=== PATIENT | female | born 1995 | race Caucasian/White ===

== ENCOUNTER 2021-10-05 12:38 | Inpatient (IN) | payer SELFPAY ==
[2021-10-05] MEDS ORDERED: Ondansetron PF 4 MG/2 ML Vial ONE (12:58)
[2021-10-05] MEDS ORDERED: Ketorolac Tromethamine 30 MG/ML VIAL ONE (13:06)
[2021-10-05 14:11] LABS: Bilirubin Negative (Negative); Blood, Urine Trace (Negative); Clarity Clear (Clear); Glucose, Urine (Dipstick) Greater than 1000 mg/dL (Negative); Ketone, Urine Greater than 150 mg/dL (Negative); Leukocyte Negative Leu/uL (Negative); Mucous/LPF Rare LPF (<2+); Nitrite Negative (Negative); Protein, Urine (Dipstick) 50 mg/dL (Neg-Trace); RBC/HPF 0-3 HPF (0-3); Specific Gravity, Urine 1.024 (1.002-1.036); Squamous Epithelial 0-3 HPF (0-3); Urobilinogen Normal mg/dL (Less than 2); WBC/HPF 0-3 HPF (0-3); pH, Urine 5.5 (5.0-9.0)
[2021-10-05 14:19] LABS: Bacteria/HPF Rare-Few HPF (None Seen)
[2021-10-05] MEDS ORDERED: diphenhydrAMINE 50 MG/ML VIAL ONE (14:20)
[2021-10-05] MEDS ORDERED: Metoclopramide HCl 10 MG/2 ML VIAL ONE (14:20)
[2021-10-05 14:40] LABS: Mean Corpuscular HGB CONC 34.8 g/dL (32.0-36.0); Mean Corpuscular Hemoglobin 24.6 pg (27.0-31.0); Mean Corpuscular Volume 70.6 fL (78.0-98.0); Mean Platelet Volume 8.3 fL (7.4-10.4); Platelet Count 713 thou/uL (130-400); RBC Distribution Width 20.6 % (11.5-14.5); White Blood Cell (WBC) Count 22.9 thou/uL (4.8-10.8)
[2021-10-05 14:42] LABS: BHCG - Serum Negative (NEGATIVE); Pregs Control Background? CLEAR/WHITE (CLR/WHITE); Pregs Control Bar Appear? YES (CONTROL BAR)
[2021-10-05] MEDS ORDERED: INSULIN REGULAR IN 0.9 % NACL 100 UNIT/100 ML BAG ONE (14:47)
[2021-10-05 14:55] LABS: Anisocytosis SLIGHT = 6-15 cells (100X) (0-5/hpf); Band 15 % (5-11); Lymphocytes 18 % (21-51); MDiff Complete? YES; Microcytosis SLIGHT = 6-15 cells (100X) (0-5/hpf); Monocytes 4 % (0-10); Neutrophil 63 % (42-75); Platelet Morphology Comment Appears Increased; Polychromasia SLIGHT = 2-3 cells (100X) (0-2/hpf)
[2021-10-05] MEDS ORDERED: Morphine 4 MG/ML VIAL ONE (15:02)
[2021-10-05 15:24] LABS: Actual Bicarbonate (HCO3a) 2.1 mEq/L (22-28); Analyzer IN Cardio ER; Base Excess (BEa) -29.1 mEq/L (-2.0 to +3.0); Calcium, Ionized (arterial) 1.24 mmol/L (1.12-1.30); Carboxyhemoglobin (COHb) 0.2 gm% (0.0-3.0); Hemoglobin (Hb) 10.4 g/dL (12.0-16.0); Potassium - ABG Lab 4.27 mmol/L (3.70-5.30)
[2021-10-05 15:32] LABS: CO2 Tension 10.8 mmHg (35.0-45.0); Puncture Site RRA
[2021-10-05 16:10] LABS: Carbon Dioxide Less than 8 mmol/L (22-29); Chloride 109 mmol/L (98-107); Potassium 5.3 mmol/L (3.5-5.1); Sodium 134 mmol/L (136-145)
[2021-10-05 16:11] LABS: Albumin 4.1 g/dL (3.5-5.0); Alkaline Phosphatase 151 U/L (40-110); BUN (Urea Nitrogen) 13 mg/dL (7.0-18.7); Bilirubin, Total Less than 0.2 mg/dL (0.2-1.2); Calc. Creatinine Clearance 0 mL/min (70-130); Calcium 8.7 mg/dL (7.8-10.44); Glucose 470 mg/dL (70-105); Protein, Total 10.1 g/dL (6.0-8.3)
[2021-10-05 16:12] LABS: ALT (SGPT) 17 U/L (8-55); AST (SGOT) 74 U/L (5-34); Lipase 41 U/L (8-78); Magnesium 2.4 mg/dL (1.6-2.6)
[2021-10-05] MEDS ORDERED: NS 0.9% w/ 20 MEQ KCL 1,000 ML ONE (16:13)
[2021-10-05] MEDS ORDERED: Calcium Carbonate 500 MG ChewTAB PO PRN (16:27)
[2021-10-05] MEDS ORDERED: Sodium Chloride 0.9% 1,000 ML IV PRN (16:27)
[2021-10-05] MEDS ORDERED: Dextrose 5 %-0.45 % NaCl 1,000 ML IV PRN (16:27)
[2021-10-05] MEDS ORDERED: Electrolyte Replacement Protocol 1 EACH IVPB ONE (16:27)
[2021-10-05] MEDS ORDERED: HUMULIN R 100 UNITS in Sodium Chloride 0.9% 100 ML IVPB SCH (16:30)
[2021-10-05 16:35] LABS: Acetaminophen Less than 6.0 mcg/mL (10.0-30.0); Alcohol Less than 10 mg/dL (Less than 10); Salicylate Less than 8.0 mg/dL (15.0-30.0)
[2021-10-05] MEDS ORDERED: hydrOXYzine 25 MG TAB PO SCH (16:45)
[2021-10-05 16:54] LABS: Amphetamine Not Detected (NotDetected); Barbiturates Screen Not Detected (NotDetected); Benzodiazepine Screen Not Detected (NotDetected); Cocaine Metabolite Screen Not Detected (NotDetected); Methadone Not Detected (NotDetected); Methamphetamine Not Detected (NotDetected); Opiate Screen Not Detected (NotDetected); Oxycodone Screen Not Detected (NotDetected); Phencyclidine (PCP) Not Detected (NotDetected); THC/Cannabinoid Screen Not Detected (NotDetected); Tricyclic Screen Not Detected (NotDetected)
[2021-10-05] MEDS ORDERED: Electrolyte Replacement Protocol FS PRN (17:00)
[2021-10-05] MEDS ORDERED: Sodium Chloride 0.45% 1,000 ML IV PRN ×2 (17:08→17:13)
[2021-10-05] MEDS ORDERED: Sodium Chloride 0.45 % 1,000 ML IV PRN (17:11)
[2021-10-05] MEDS ORDERED: 1/2 NS w/KCL 20 mEq 1,000 ML IV PRN (17:15)
[2021-10-05 17:32] LABS: SARS-CoV-2 NAA Rapid Test DETECTED (NotDetected)
[2021-10-05 18:21] LABS: BUN (Urea Nitrogen) 11 mg/dL (7.0-18.7); Calc. Creatinine Clearance 0 mL/min (70-130); Calcium 8.9 mg/dL (7.8-10.44); Chloride 120 mmol/L (98-107); Glucose 248 mg/dL (70-105); Potassium 5.4 mmol/L (3.5-5.1); Sodium 141 mmol/L (136-145)
[2021-10-05 18:25] LABS: Carbon Dioxide Less than 8 mmol/L (22-29)
[2021-10-05 18:41] LABS: Base Excess -27.6 mEq/L (-2.0 to +3.0); Calcium, Ionized (venous) 1.22 mmol/L (1.16-1.32); Chloride (VBG) 125 mmol/L (98-106); Hemoglobin (Hb) 10.9 g/dL (11.7-15.5); Potassium (VBG) 5.69 mmol/L (3.70-5.30); Sodium 152.6 mmol/L (133-146)
[2021-10-05 18:42] LABS: Actual Bicarbonate (HCO3a) 1.6 mEq/L (22-28); Base Excess (BEa) -29.5 mEq/L (-2.0 to +3.0); Calcium, Ionized (arterial) 0.44 mmol/L (1.12-1.30); Carboxyhemoglobin (COHb) 2.7 gm% (0.0-3.0); O2 Tension (PaO2), arterial 84.3 mmHg (80.0-100.0)
[2021-10-05 18:43] LABS: pH (venous) 6.86 (7.32-7.43)
[2021-10-05 18:44] LABS: Actual Bicarbonate (HCO3v) 5 mEq/L (22-28)
[2021-10-05 18:45] LABS: CO2 Tension 10.7 mmHg (35.0-45.0); Hemoglobin (Hb) 3.3 g/dL (12.0-16.0); Potassium - ABG Lab 14.61 mmol/L (3.70-5.30); pH, Arterial 6.78 (7.35-7.45)
[2021-10-05 18:46] LABS: Puncture Site Other Site
[2021-10-05] MEDS: NS 0.9% w/ 20 MEQ KCL 1,000 ML IV PRN ×2 (18:59→21:36)
[2021-10-05 19:47] LABS: Carboxyhemoglobin (COHb) 0.3 gm% (0.0-3.0); Potassium - ABG Lab 2.21 mmol/L (3.70-5.30)
[2021-10-05 20:39] VITALS: BMI 22.8
[2021-10-05] MEDS: Acetaminophen 325 MG TAB PO PRN (21:32)
[2021-10-05 21:47] LABS: Chloride 118 mmol/L (98-107); Potassium 4.8 mmol/L (3.5-5.1); Sodium 136 mmol/L (136-145)
[2021-10-05 21:48] LABS: Calcium 8.3 mg/dL (7.8-10.44); Glucose 126 mg/dL (70-105)
[2021-10-05 21:51] LABS: Calc. Creatinine Clearance 81 mL/min (70-130)
[2021-10-05 21:52] LABS: BUN (Urea Nitrogen) 9 mg/dL (7.0-18.7)
[2021-10-05 22:00] LABS: Carbon Dioxide Less than 8 mmol/L (22-29)
[2021-10-05] MEDS ORDERED: Lidocaine 2% Viscous Solution 20 ML, Aluminum & Magnesium Hydroxide 30 ML, Donnatal Eli... SSW SCH (23:00)
[2021-10-05 23:32] LABS: BUN (Urea Nitrogen) 9 mg/dL (7.0-18.7); Calc. Creatinine Clearance 77 mL/min (70-130); Calcium 8.2 mg/dL (7.8-10.44); Chloride 120 mmol/L (98-107); Glucose 171 mg/dL (70-105); Potassium 4.4 mmol/L (3.5-5.1); Sodium 140 mmol/L (136-145)
[2021-10-05 23:42] LABS: Carbon Dioxide Less than 8 mmol/L (22-29); Magnesium 2.2 mg/dL (1.6-2.6); Phosphorus 1.3 mg/dL (2.3-4.7)
[2021-10-06] MEDS: D5 1/2 NS w/20 mEq KCL 1,000 ML IV PRN ×4 (00:05→10:26)
[2021-10-06 01:22] LABS: Calcium, Ionized (venous) 1.07 mmol/L (1.16-1.32); Chloride (VBG) 117 mmol/L (98-106); Hemoglobin (Hb) 8.4 g/dL (11.7-15.5); Potassium (VBG) 8.29 mmol/L (3.70-5.30); Sodium 131.4 mmol/L (133-146); pH (venous) 6.97 (7.32-7.43)
[2021-10-06 01:23] LABS: Actual Bicarbonate (HCO3v) 4 mEq/L (22-28)
[2021-10-06 01:24] LABS: CO2 Tension 14.7 mmHg (35.0-45.0); Hemoglobin (Hb) 5.9 g/dL (12.0-16.0); O2 Tension (PaO2), arterial 31.2 mmHg (80.0-100.0); pH, Arterial 6.93 (7.35-7.45)
[2021-10-06 01:25] LABS: ALV-art Gradient 100.155 mmHg (0-20)
[2021-10-06] MEDS ORDERED: PHOS-NAK 1 PKT PACK PO SCH (01:30)
[2021-10-06 03:11] LABS: BUN (Urea Nitrogen) 6 mg/dL (7.0-18.7); Calc. Creatinine Clearance 73 mL/min (70-130); Calcium 7.8 mg/dL (7.8-10.44); Chloride 120 mmol/L (98-107); Glucose 324 mg/dL (70-105); Sodium 138 mmol/L (136-145)
[2021-10-06 03:14] LABS: Carbon Dioxide Less than 8 mmol/L (22-29)
[2021-10-06] MEDS: Acetaminophen 325 MG TAB PO PRN ×4 (03:19→16:23)
[2021-10-06] MEDS: hydrOXYzine 25 MG TAB PO PRN (03:22)
[2021-10-06 04:31] LABS: Base Excess -18.5 mEq/L (-2.0 to +3.0); Calcium, Ionized (venous) 1.23 mmol/L (1.16-1.32); Chloride (VBG) 122 mmol/L (98-106); Hemoglobin (Hb) 9.4 g/dL (11.7-15.5); Potassium (VBG) 3.62 mmol/L (3.70-5.30); Sodium 144.4 mmol/L (133-146)
[2021-10-06 04:32] LABS: pH (venous) 7.17 (7.32-7.43)
[2021-10-06 04:33] LABS: Actual Bicarbonate (HCO3v) 9 mEq/L (22-28)
[2021-10-06] MEDS: PHOS-NAK 1 PKT PACK PO SCH ×3 (04:34→11:32)
[2021-10-06 04:54] LABS: BUN (Urea Nitrogen) 4 mg/dL (7.0-18.7); Calc. Creatinine Clearance 75 mL/min (70-130); Calcium 8.2 mg/dL (7.8-10.44); Chloride 120 mmol/L (98-107); Glucose 244 mg/dL (70-105); Potassium 3.5 mmol/L (3.5-5.1); Sodium 138 mmol/L (136-145)
[2021-10-06 04:58] LABS: Carbon Dioxide Less than 8 mmol/L (22-29)
[2021-10-06] MEDS ORDERED: Potassium Chloride 20 MEQ TAB PO SCH (05:00)
[2021-10-06] MEDS ORDERED: Chloraseptic Spray 180 ml Bottle PO PRN (07:32)
[2021-10-06 07:38] LABS: Anion Gap 12 mmol/L (10-20); BUN (Urea Nitrogen) 5 mg/dL (7.0-18.7); Calc. Creatinine Clearance 81 mL/min (70-130); Carbon Dioxide 9 mmol/L (22-29); Chloride 120 mmol/L (98-107); Glucose 186 mg/dL (70-105); Potassium 3.4 mmol/L (3.5-5.1); Sodium 138 mmol/L (136-145)
[2021-10-06] MEDS ORDERED: Magnesium 2 GM/50 ML 2 GM in Premix Bag 1 BAG IVPB SCH (09:00)
[2021-10-06] MEDS ORDERED: FLU VACC QS2021-22(6MOS UP)/PF 60 MCG/0.5 ML SYRINGE IM ONE (09:00)
[2021-10-06] MEDS ORDERED: Sodium Chloride 0.9% 1,000 ML IV SCH (10:15)
[2021-10-06] MEDS: Potassium Chloride 20 MEQ in Premix Bag 1 BAG IVPB SCH ×2 (10:26→11:32)
[2021-10-06 10:31] LABS: Anion Gap 14 mmol/L (10-20); BUN (Urea Nitrogen) 4 mg/dL (7.0-18.7); Calc. Creatinine Clearance 95 mL/min (70-130); Calcium 8.1 mg/dL (7.8-10.44); Carbon Dioxide 10 mmol/L (22-29); Chloride 121 mmol/L (98-107); Glucose 78 mg/dL (70-105); Potassium 3.6 mmol/L (3.5-5.1); Sodium 141 mmol/L (136-145)
[2021-10-06 10:44] LABS: #Lymphocytes 1.1 thou/uL (1.20-3.40); #Monocytes 0.8 thou/uL (0.11-0.59); #Neutrophils 6.2 thou/uL (1.40-6.50); %Basophils 0.6 % (0.0-1.0); %Eosinophils 0.4 % (0.0-10.0); %Lymphocytes 13.2 % (21.0-51.0); %Monocytes 9.7 % (0.0-10.0); %Neutrophils 76.1 % (42.0-75.0); Hemoglobin 8.4 g/dL (12.0-16.0); Mean Corpuscular HGB CONC 30.5 g/dL (32.0-36.0); Mean Corpuscular Hemoglobin 21.6 pg (27.0-31.0); Mean Corpuscular Volume 70.9 fL (78.0-98.0); Mean Platelet Volume 8.1 fL (7.4-10.4); Platelet Count 365 thou/uL (130-400); RBC Distribution Width 19.6 % (11.5-14.5); Red Blood Cell (RBC) Count 3.88 mill/uL (4.20-5.40); White Blood Cell (WBC) Count 8.2 thou/uL (4.8-10.8)
[2021-10-06 13:52] LABS: Anion Gap 14 mmol/L (10-20); BUN (Urea Nitrogen) 4 mg/dL (7.0-18.7); Calc. Creatinine Clearance 110 mL/min (70-130); Calcium 7.3 mg/dL (7.8-10.44); Chloride 120 mmol/L (98-107); Glucose 117 mg/dL (70-105); Potassium 4.1 mmol/L (3.5-5.1); Sodium 138 mmol/L (136-145)
[2021-10-06 14:08] LABS: Carbon Dioxide 8 mmol/L (22-29)
[2021-10-06] MEDS ORDERED: Sodium Bicarbonate 150 MEQ in Dextrose 5% in Water 1,000 ML IV SCH (15:00)
[2021-10-06 17:10] LABS: Anion Gap 10 mmol/L (10-20); BUN (Urea Nitrogen) Less than 4 mg/dL (7.0-18.7); Calc. Creatinine Clearance 97 mL/min (70-130); Calcium 7.4 mg/dL (7.8-10.44); Carbon Dioxide 13 mmol/L (22-29); Chloride 116 mmol/L (98-107); Glucose 265 mg/dL (70-105); Potassium 3.6 mmol/L (3.5-5.1); Sodium 135 mmol/L (136-145)
[2021-10-06] MEDS: HumaLOG 300 UNITS/3 ML VIAL SC PRN (20:35)
[2021-10-06] MEDS ORDERED: Lantus 1000 UNITS/10 ML VIAL SC SCH (21:00)
[2021-10-06 21:03] LABS: Anion Gap 11 mmol/L (10-20); BUN (Urea Nitrogen) Less than 4 mg/dL (7.0-18.7); Calc. Creatinine Clearance 91 mL/min (70-130); Calcium 7.6 mg/dL (7.8-10.44); Carbon Dioxide 18 mmol/L (22-29); Chloride 108 mmol/L (98-107); Glucose 367 mg/dL (70-105); Potassium 3.5 mmol/L (3.5-5.1); Sodium 133 mmol/L (136-145)
[2021-10-06] MEDS ORDERED: Dextrose 5% in Water 1,000 ML IV PRN (21:41)
[2021-10-06] MEDS ORDERED: Dextrose 50% Abboject 50 ML SYRINGE SLOW IVP PRN (21:41)
[2021-10-07 00:08] LABS: Anion Gap 10 mmol/L (10-20); BUN (Urea Nitrogen) Less than 4 mg/dL (7.0-18.7); Calc. Creatinine Clearance 102 mL/min (70-130); Calcium 7.9 mg/dL (7.8-10.44); Carbon Dioxide 19 mmol/L (22-29); Chloride 108 mmol/L (98-107); Glucose 309 mg/dL (70-105); Sodium 134 mmol/L (136-145)
[2021-10-07] MEDS ORDERED: Potassium Chloride 20 MEQ in Premix Bag 1 BAG IVPB SCH (00:30)
[2021-10-07] MEDS ORDERED: Potassium Chloride 40 MEQ in Sodium Chloride 0.9% 250 ML 250 ML IVPB SCH (01:30)
[2021-10-07 05:00] LABS: #Eosinphils 0.1 thou/uL (0.0-0.7); #Lymphocytes 1.2 thou/uL (1.20-3.40); #Monocytes 0.4 thou/uL (0.11-0.59); #Neutrophils 3.9 thou/uL (1.40-6.50); %Basophils 0.8 % (0.0-1.0); %Eosinophils 1.4 % (0.0-10.0); %Lymphocytes 21.5 % (21.0-51.0); %Monocytes 7.5 % (0.0-10.0); %Neutrophils 68.8 % (42.0-75.0); Hemoglobin 7.9 g/dL (12.0-16.0); Mean Corpuscular HGB CONC 31.4 g/dL (32.0-36.0); Mean Corpuscular Hemoglobin 22.3 pg (27.0-31.0); Mean Platelet Volume 7.6 fL (7.4-10.4); Platelet Count 353 thou/uL (130-400); RBC Distribution Width 19.8 % (11.5-14.5); Red Blood Cell (RBC) Count 3.54 mill/uL (4.20-5.40); White Blood Cell (WBC) Count 5.7 thou/uL (4.8-10.8)
[2021-10-07 05:28] LABS: Phosphorus 1.7 mg/dL (2.3-4.7)
[2021-10-07 05:40] LABS: Anion Gap 15 mmol/L (10-20); BUN (Urea Nitrogen) Less than 4 mg/dL (7.0-18.7); Calc. Creatinine Clearance 118 mL/min (70-130); Calcium 8.3 mg/dL (7.8-10.44); Carbon Dioxide 18 mmol/L (22-29); Chloride 107 mmol/L (98-107); Glucose 317 mg/dL (70-105); Potassium 3.5 mmol/L (3.5-5.1); Sodium 136 mmol/L (136-145)
[2021-10-07] MEDS ORDERED: Potassium Phosphate 15 MMOL in Sodium Chloride 0.9% 250 ML 250 ML IVPB SCH (06:00)
[2021-10-07] MEDS: HumaLOG 300 UNITS/3 ML VIAL SC PRN ×5 (06:13→20:45)
[2021-10-07] MEDS ORDERED: Magnesium 2 GM/50 ML 2 GM in Premix Bag 1 BAG IVPB SCH (06:15)
[2021-10-07] MEDS: HumaLOG 300 UNITS/3 ML VIAL SC SCH ×3 (07:39→16:50)
[2021-10-07 12:52] LABS: Anion Gap 10 mmol/L (10-20); BUN (Urea Nitrogen) 5 mg/dL (7.0-18.7); Calc. Creatinine Clearance 111 mL/min (70-130); Calcium 8.1 mg/dL (7.8-10.44); Carbon Dioxide 24 mmol/L (22-29); Chloride 108 mmol/L (98-107); Glucose 353 mg/dL (70-105); Potassium 3.5 mmol/L (3.5-5.1); Sodium 138 mmol/L (136-145)
[2021-10-07 18:48] LABS: Anion Gap 14 mmol/L (10-20); BUN (Urea Nitrogen) 6 mg/dL (7.0-18.7); Calc. Creatinine Clearance 84 mL/min (70-130); Calcium 8.7 mg/dL (7.8-10.44); Carbon Dioxide 21 mmol/L (22-29); Chloride 103 mmol/L (98-107); Glucose 333 mg/dL (70-105); Potassium 3.4 mmol/L (3.5-5.1); Sodium 135 mmol/L (136-145)
[2021-10-07] MEDS ORDERED: Potassium Chloride 20 MEQ TAB PO SCH (20:00)
[2021-10-07] MEDS: Acetaminophen 325 MG TAB PO PRN (20:43)
[2021-10-07] MEDS ORDERED: HumuLIN 70/30 (300 UNITS/3 ML VIAL) SC SCH (21:00)
[2021-10-08] MEDS: Cepastat Lozenges 1 LOZ PO PRN ×5 (00:01→22:24)
[2021-10-08] MEDS: hydrOXYzine 25 MG TAB PO PRN ×2 (00:02→22:16)
[2021-10-08] MEDS: Ibuprofen 600 MG TAB PO PRN ×3 (00:18→22:17)
[2021-10-08 04:46] LABS: #Eosinphils 0.1 thou/uL (0.0-0.7); #Lymphocytes 1.4 thou/uL (1.20-3.40); #Monocytes 0.3 thou/uL (0.11-0.59); #Neutrophils 2.8 thou/uL (1.40-6.50); %Basophils 0.4 % (0.0-1.0); %Eosinophils 2.7 % (0.0-10.0); %Lymphocytes 30.1 % (21.0-51.0); %Monocytes 6.7 % (0.0-10.0); %Neutrophils 60.1 % (42.0-75.0); Hemoglobin 7.5 g/dL (12.0-16.0); Mean Corpuscular HGB CONC 31.3 g/dL (32.0-36.0); Mean Corpuscular Hemoglobin 21.9 pg (27.0-31.0); Mean Corpuscular Volume 69.9 fL (78.0-98.0); Mean Platelet Volume 8.4 fL (7.4-10.4); Platelet Count 279 thou/uL (130-400); RBC Distribution Width 19.6 % (11.5-14.5); Red Blood Cell (RBC) Count 3.43 mill/uL (4.20-5.40); White Blood Cell (WBC) Count 4.7 thou/uL (4.8-10.8)
[2021-10-08 05:11] LABS: Magnesium 2.1 mg/dL (1.6-2.6)
[2021-10-08 05:17] LABS: Phosphorus 1.9 mg/dL (2.3-4.7)
[2021-10-08] MEDS: PHOS-NAK 1 PKT PACK PO SCH ×2 (06:47→10:56)
[2021-10-08] MEDS: HumaLOG 300 UNITS/3 ML VIAL SC PRN ×3 (06:47→20:10)
[2021-10-08] MEDS ORDERED: HumuLIN 70/30 (300 UNITS/3 ML VIAL) SC SCH ×2 (08:00→19:00)
[2021-10-08] MEDS: HumuLIN 70/30 (300 UNITS/3 ML VIAL) SC SCH (08:07)
[2021-10-08] MEDS: HumaLOG 300 UNITS/3 ML VIAL SC SCH ×3 (08:12→17:00)
[2021-10-08 09:59] LABS: Anion Gap 11 mmol/L (10-20); BUN (Urea Nitrogen) 6 mg/dL (7.0-18.7); Calc. Creatinine Clearance 119 mL/min (70-130); Calcium 8.5 mg/dL (7.8-10.44); Carbon Dioxide 24 mmol/L (22-29); Chloride 106 mmol/L (98-107); Glucose 251 mg/dL (70-105); Potassium 3.5 mmol/L (3.5-5.1); Sodium 137 mmol/L (136-145)
[2021-10-08 10:14] LABS: Iron 35 ug/dL (50-170); Iron Binding Capacity, Total 271 mcg/dL (265-497)
[2021-10-08] MEDS: Acetaminophen 325 MG TAB PO PRN ×2 (10:56→19:55)
[2021-10-08] MEDS ORDERED: Potassium Chloride 20 MEQ TAB PO SCH (13:45)
[2021-10-08] MEDS: Ferrous Sulfate 325 MG TAB PO SCH (15:05)
[2021-10-09] MEDS: Acetaminophen 325 MG TAB PO PRN ×2 (01:15→22:20)
[2021-10-09] MEDS: Cepastat Lozenges 1 LOZ PO PRN ×2 (01:15→22:21)
[2021-10-09] MEDS: HumaLOG 300 UNITS/3 ML VIAL SC PRN (06:14)
[2021-10-09 07:00] LABS: #Eosinphils 0.1 thou/uL (0.0-0.7); #Lymphocytes 1.1 thou/uL (1.20-3.40); #Monocytes 0.4 thou/uL (0.11-0.59); #Neutrophils 2.2 thou/uL (1.40-6.50); %Basophils 0.5 % (0.0-1.0); %Lymphocytes 29.7 % (21.0-51.0); %Monocytes 9.6 % (0.0-10.0); %Neutrophils 58.2 % (42.0-75.0); Hemoglobin 7.6 g/dL (12.0-16.0); Mean Corpuscular HGB CONC 30.1 g/dL (32.0-36.0); Mean Corpuscular Hemoglobin 21.3 pg (27.0-31.0); Mean Corpuscular Volume 70.7 fL (78.0-98.0); Mean Platelet Volume 8.6 fL (7.4-10.4); Platelet Count 217 thou/uL (130-400); RBC Distribution Width 19.6 % (11.5-14.5); Red Blood Cell (RBC) Count 3.58 mill/uL (4.20-5.40); White Blood Cell (WBC) Count 3.7 thou/uL (4.8-10.8)
[2021-10-09 07:08] LABS: Anion Gap 10 mmol/L (10-20); BUN (Urea Nitrogen) 7 mg/dL (7.0-18.7); Calc. Creatinine Clearance 117 mL/min (70-130); Calcium 8.7 mg/dL (7.8-10.44); Carbon Dioxide 26 mmol/L (22-29); Chloride 103 mmol/L (98-107); Glucose 377 mg/dL (70-105); Potassium 4.3 mmol/L (3.5-5.1); Sodium 135 mmol/L (136-145)
[2021-10-09 07:12] LABS: Phosphorus 3.7 mg/dL (2.3-4.7)
[2021-10-09] MEDS ORDERED: Magnesium 2 GM/50 ML 2 GM in Premix Bag 1 BAG IVPB SCH (08:00)
[2021-10-09] MEDS: HumuLIN 70/30 (300 UNITS/3 ML VIAL) SC SCH ×3 (10:11→19:39)
[2021-10-09] MEDS: HumaLOG 300 UNITS/3 ML VIAL SC SCH ×3 (10:12→18:04)
[2021-10-09 13:46] LABS: Pregnancy Test - Urine (BHCG) Negative (Negative); Pregu Control Background? CLEAR/WHITE (CLR/WHITE); Pregu Control Bar Appear? YES (CONTROL BAR); Specific Gravity 1.017 (1.002-1.036)
[2021-10-09] MEDS: hydrOXYzine 25 MG TAB PO PRN (22:20)
[2021-10-10] MEDS: HumaLOG 300 UNITS/3 ML VIAL SC PRN (05:09)
[2021-10-10] MEDS: HumaLOG 300 UNITS/3 ML VIAL SC SCH ×3 (08:54→17:55)
[2021-10-10] MEDS: HumuLIN 70/30 (300 UNITS/3 ML VIAL) SC SCH ×2 (08:57→19:43)
[2021-10-10] MEDS: Cepastat Lozenges 1 LOZ PO PRN (08:57)
[2021-10-10 13:12] LABS: #Eosinphils 0.1 thou/uL (0.0-0.7); #Monocytes 0.5 thou/uL (0.11-0.59); #Neutrophils 2.4 thou/uL (1.40-6.50); %Basophils 0.9 % (0.0-1.0); %Monocytes 9.6 % (0.0-10.0); %Neutrophils 47.5 % (42.0-75.0); Hemoglobin 8.7 g/dL (12.0-16.0); Mean Corpuscular HGB CONC 30.3 g/dL (32.0-36.0); Mean Corpuscular Hemoglobin 21.3 pg (27.0-31.0); Mean Corpuscular Volume 70.3 fL (78.0-98.0); Mean Platelet Volume 9.4 fL (7.4-10.4); Platelet Count 265 thou/uL (130-400); RBC Distribution Width 20.2 % (11.5-14.5); Red Blood Cell (RBC) Count 4.11 mill/uL (4.20-5.40); White Blood Cell (WBC) Count 5.1 thou/uL (4.8-10.8)
[2021-10-10] MEDS: Ferrous Sulfate 325 MG TAB PO SCH (13:44)
[2021-10-10 14:11] LABS: Magnesium 1.8 mg/dL (1.6-2.6)
[2021-10-10 14:46] LABS: Phosphorus 3.7 mg/dL (2.3-4.7)
[2021-10-10 20:09] VITALS: BP 107/68; TEMP 98.9
== END 2021-10-10 20:49 | disposition home or self-care (01) | DRG 637 ==
LOC: ERS 12:38 → CCU 15:51 → T4-A 10-08 14:12
PROVIDERS: ADMIT Family Medicine; ATTEND Family Medicine
PROC: 8E0ZXY6 Isolation (ICD-10-PCS; principal; 2021-10-05)
DX: E10.10 Type 1 diabetes mellitus with ketoacidosis without coma (principal); U07.1 COVID-19; J18.9 Pneumonia, unspecified organism; E87.0 Hyperosmolality and hypernatremia; G93.40 Encephalopathy, unspecified; E86.0 Dehydration; D50.9 Iron deficiency anemia, unspecified; R00.0 Tachycardia, unspecified; I95.9 Hypotension, unspecified; Z79.4 Long term (current) use of insulin; Z79.2 Long term (current) use of antibiotics
CPT/HCPCS: 36415; 36416; 36600; 71045; 71275; 80048; 80053; 80306; 80307; 81003; 81015; 81025; 82010; 82728; 82805; 83540; 83550; 83605; 83690; 83735; 83930; 83935; 84100; 84145; 84703; 85025; 87040; 87086; 87804; 93005; 93010; J0500; J1200; J1815; J1885; J2270; J2405; J2765; J3475; J3480; J3490; J7050; J7070; U0002